=== PATIENT | female | born 1960 | race Caucasian/White ===

== ENCOUNTER 2025-04-21 17:55 | Emergency (ER) | payer SELFPAY ==
[2025-04-21] MEDS ORDERED: ONDANSETRON 4 MG/2 ML VIAL ONE (18:38)
[2025-04-21] MEDS ORDERED: NA CHLORIDE 0.9% 1,000 ML ONE (18:39)
[2025-04-21] MEDS ORDERED: MORPHINE 4 MG/ML SYR ONE (18:39)
[2025-04-21 19:19] LABS: Nucleated RBC Absolute Count 0.0 (0-0); White Blood Count 3.80 thou/uL (4.3-10.9)
[2025-04-21 19:24] LABS: Absolute Lymphocytes (CBC) 1.3 K/uL (0.7-4.9); Hematocrit 36.1 % (36.0-45.0); Hemoglobin 12.3 g/dL (12.0-15.0); MCH 33.7 pg (27.0-35.0); MCHC 34.1 g/dL (32.0-36.0); MCV 99.0 fL (80-100); MPV 8.0 fL (7.6-11.3); Nucleated Red Blood Cells % 0.3 % (0-0); RBC Red Blood Cell Count 3.65 M/uL (3.86-4.86)
[2025-04-21 19:28] LABS: Sqamous Epithelial <5 /HPF (None Seen); Urine Culture Reflex Order NOT NEEDED; Urine Microscopic Reflex YN ORDER UMIC
[2025-04-21] MEDS ORDERED: KETOROLAC 30 MG/ML INJ ONE (20:06)
[2025-04-21 21:05] LABS: ALT/SGPT 32.0 U/L (13-56); AST/SGOT 26.0 U/L (15-37); Albumin 4.0 g/dL (3.4-5.0); Albumin/Globulin Ratio 1.2 (1.1-1.8); Alkaline Phosphatase 104.0 U/L (45-117); Anion Gap 9.1 mEq/L (5.0-15.0); BUN Blood Urea Nitrogen 15.0 mg/dL (7-18); Globulin 3.3 g/dL (2.3-3.5); Glucose Level 89.0 mg/dL (74-106); Potassium 4.1 mEq/L (3.5-5.1)
--- NOTE | 2025-04-21 21:43 | RAD REPORT ---
EXAMINATION: Abdomen Pelvis W Contrast CLINICAL INDICATION: Female, 64 years old.ABD PAIN TECHNIQUE: CT abdomen and pelvis was performed, after the administration of IV contrast, [facility]. Axial, sagittal and coronal reconstructions were obtained. One or more of the following dose reduction techniques were used: Automated exposure control, adjustment of the mA and/o r kV according to patient size, and/or iterative reconstruction. Unless otherwise specified, incidental findings do not require dedicated imaging follow-up. [id number]. COMPARISON: No prior exams FINDINGS: LOWER CHEST: No acute process identified.No significant pericardial effusion. Mild coronary artery ca lcifications. UPPER GI: No significant abnormality. LIVER: No significant focal abnormality. GALLBLADDER/BILE DUCTS: No biliary ductal dilatation.? PANCREAS: No mass, ductal dilation, or onesimo-pancreatic fluid. SPLEEN: Unremarkable. ADRENALS: No adrenal masses. KIDNEYS AND URETERS: No hydronephrosis.Low density and/or too small to characterize renal lesions whi ch are statistically benign.No renal calculi.No ureteral calculi. ABDOMINAL AORTA AND OTHER VESSELS: Moderate atherosclerotic changes without aortic aneurysm. PERITONEUM: No abnormal free fluid. No free air. LYMPH NODES: No pathologic lymphadenopathy. ABDOMINAL WALL: Unremarkable SMALL BOWEL/COLON: Small bowel has normal course and caliber. No colonic wall thickening or pericolon ic inflammatory changes.Nonvisualized appendix but no secondary signs of acute appendicitis. Mild diverticulosis without diverticulitis. Large colonic stool burden. URINARY BLADDER: Underdistended but grossly unremarkable. REPRODUCTIVE ORGANS: No pathologic process. MUSCULOSKELETAL: Bilateral hip arthroplasties. No acute fracture. ADDITIONAL FINDINGS: None. IMPRESSION: No acute findings within the abdomen or pelvis. Incidental findings as noted above.
--- NOTE | 2025-04-21 22:02 | EDPHYS ---
Physician Documentation [facility] Name: Aide Madsen Age: 64 yrs Sex: Female : 1960 Arrival Date: 04/21/2025 Time: 17:55 Bed 6 Private MD: ED Physician Melisa Mooney HPI: 04/21 18:44 This 64 yrs old Female presents to ER via Ambulatory with complaints of Flank dr5 Pain - RIGHT SIDE. 18:44 The patient complains of pain in the right flank. The pain radiates to the right mid dr5 back. Onset: The symptoms/episode began/occurred 6 month(s) ago. Patient is a 64-year-old female with history of hypertension, fibromyalgia, migraines coming in with right midline flank pain that been going on since yesterday. Patient reports that she has had multiple surgeries on the right side of her body as well as a left hip replacement. Patient reports that she has had intermittent pain and numbness to her right side. Patient denies dizziness, headache, visual disturbances, nausea, vomiting, constipation, diarrhea, or fever. Patient reports that most of her symptoms that she is having are chronic but her right side is getting worse.. Historical: - Allergies: 18:14 Codeine; jb4 - Home Meds: 18:14 estradiol [Active]; progesterone micronized 200 mg oral capsule [Active]; Motrin Oral jb4 800 mg three times a day [Active]; sumatriptan [Active]; - PMHx: 18:14 HTN; Fibromyalgia; Migraine; jb4 - Immunization history:: Adult Immunizations up to date. - Infectious Disease History:: Denies. - Social history:: Smoking status: Patient denies any tobacco usage or history of. ROS: 18:44 Constitutional: as per hpi dr5 Exam: 18:44 Constitutional: This is a well developed, well nourished patient who is awake, alert, dr5 and in no acute distress. Head/Face: Normocephalic, atraumatic. Eyes: Pupils equal round and reactive to light, extra-ocular motions intact. Lids and lashes normal. Conjunctiva and sclera are non-icteric and not injected. Cornea within normal limits. Periorbital areas with no swelling, redness, or edema. Neuro: Awake and alert, GCS 15, oriented to person, place, time, and situation. Cranial nerves II-XII grossly intact. Motor strength 5/5 in all extremities. Sensory grossly intact. Cerebellar exam normal. Normal gait. 18:44 Chest/axilla: Normal chest wall appearance and motion. Nontender with no deformity. No lesions are appreciated. Cardiovascular: Regular rate and rhythm with a normal S1 and S2. Normal PMI, no JVD. No pulse deficits. Respiratory: Lungs have equal breath sounds bilaterally, clear to auscultation. No rales, rhonchi or wheezes noted. No increased work of breathing, no retractions or nasal flaring. Abdomen/GI: Soft, non-tender, non-distended. Tenderness to palpation of midline right side. No rash / vesicular lesions noted. Skin: Warm, dry with normal turgor. Normal color with no rashes, no lesions, and no evidence of cellulitis. MS/ Extremity: Pulses equal, no cyanosis. Neurovascular intact. Full, normal range of motion. Vital Signs: 18:10 BP 142 / 76; Pulse 100; Resp 16; Temp 98.5(O); Pulse Ox 100% on R/A; Weight 68.95 kg; jb4 Height 5 ft. 3 in. ; Pain 6/10; 18:30 BP 144 / 79; Pulse 88; Resp 16; Temp 98(O); Pulse Ox 99% on R/A; Weight 68.95 kg; cf3 Height 5 ft. 3 in. ; 19:00 BP 147 / 86; Pulse 89; Resp 16; Pulse Ox 97% ; me1 20:00 BP 142 / 86; Pulse 79; Resp 17; Pulse Ox 99% ; me1 20:27 Pain 5/10; kj2 21:00 BP 147 / 78; Pulse 76; Resp 18; Pulse Ox 97% ; me1 18:30 Body Mass Index 26.93 (68.95 kg, 160.02 cm) cf3 18:10 Pain Scale: Adult jb4 20:27 Pain Scale: Adult kj2 NIH Stroke Scale Scores: 18:44 NIHSS Score: 0 dr5 MDM: 18:03 Medical Screening Exam initiated dr5 20:21 Transition of care: After a detail discussion of the patient's case, care is dr5 transferred to Selena CRANDALL. 22:02 Differential diagnosis: nephrolithiasis, pyelonephritis, UTI. Data reviewed: vital kb signs, nurses notes. I considered the following discharge prescriptions or medication management in the emergency department I discussed and recommended Over The Counter medications, Antibiotics: At this time antibiotics are not recommended. Historians other than the Patient: Spouse/Significant Other: spouse. Counseling: I had a detailed discussion with the patient and/or guardian regarding the historical points, exam findings, and any diagnostic results supporting the discharge/admit diagnosis, lab results, radiology results, the need for outpatient follow up, a family practitioner, to return to the emergency department if symptoms worsen or persist or if there are any questions or concerns that arise at home. 04/21 18:29 Order name: CBC with Diff; Complete Time: 19:34 dr5 04/21 18:29 Order name: CMP; Complete Time: 21:12 dr5 04/21 18:29 Order name: UA Rfx Ben Cult if indicated; Complete Time: 19:33 dr5 04/21 21:33 Order name: CREATININE WHOLE BLOOD; Complete Time: 21:35 EDMS 04/21 18:29 Order name: CT Abd/Pelvis - IV Contrast Only; Complete Time: 21:51 dr5 Administered Medications: 19:00 Drug: NS 0.9% IV 1000 ml IV at 1000 ml once; to be given as a bolus over 60 minutes me1 Route: IV; Rate: 1000 ml; Site: right antecubital; 22:10 Follow up: IV Status: Completed infusion cp4 19:00 Drug: morphine IVP or IV 4 mg IVP once over 4 mins Route: IVP; Infused Over: 4 mins; me1 Site: right antecubital; 20:04 Follow up: Response: No adverse reaction; Nausea is decreased kj2 19:00 Drug: Ondansetron IVP 4 mg IVP once; over 2 minutes Route: IVP; Site: right antecubital;me1 20:04 Follow up: Response: No adverse reaction; Pain is decreased kj2 20:13 Drug: Ketorolac IVP 15 mg IVP once Route: IVP; Site: right antecubital; me1 22:10 Follow up: Response: No adverse reaction cp4 Disposition Summary: 04/21/25 22:01 Discharge Ordered Notes: Location: Home kb Condition: Stable kb Diagnosis - Right flank pain kb Followup: kb - With: Emergency Department - When: As needed - Reason: Worsening of condition Followup: kb - With: Private Physician - When: 2 - 3 days - Reason: Recheck today's complaints, Continuance of care, Re-evaluation by your physician Discharge Instructions: - Discharge Summary Sheet kb - Flank Pain, Adult, [id number] kb Forms: - Medication Reconciliation Form kb - Antibiotic Education kb - Prescription Opioid Use kb - Patient Portal Instructions kb - Leadership Thank You Letter andrew NIH Stroke Scale - NIH Stroke Score Date: 04/21/2025 Time: 18:44 Total Score = 0 10. Dysarthria (speech clarity - read or repeat words) - 0(Normal) 11. Extinction and Inattention (visual/tactile/auditory/spatial/personal) - 0(No abnormality) 1a. Level of Consciousness (LOC) - 0(Alert) 1b. Level of Consciousness (LOC) (Month \T\ Age) - 0(Both) 1c. LOC Commands (Open \T\ Closes Eyes/Pigment Pusher) - 0(Both) 2. Best Gaze (Lateral Gaze Paresis) - 0(Normal) 3. Visual Field Loss - 0(No visual loss) 4. Facial Palsy - 0(Normal) 5a. Left Arm: Motor (10-second hold) - 0(No drift) 5b. Right Arm: Motor (10-second hold) - 0(No drift) 6a. Left Leg: Motor (5-second hold - always test supine) - 0(No drift) 6b. Right Leg: Motor (5-second hold - always test supine) - 0(No drift) 7. Limb Ataxia (finger/nose \T\ heel/mojica - test with eyes open) - 0(Absent) 8. Sensory Loss (pinprick arms/legs/face) - 0(Normal) 9. Best Language: Aphasia (description/naming/reading) - 0(No aphasia) Initials: dr5 Signatures: Dispatcher [employer] EDMD Selena Patricio, RAZ HEATER MECHANIC-Eric Mcgregor RN RN jb4 Yuli Silva RN RN me1 Contreras Jones FNPDamonC HEATER MECHANIC-5 [place] Love cp4 Shelly Torre RN kj2 Corrections: (The following items were deleted from the chart) 18:17 18:14 Allergies: No Known Allergies; gael jbAna 18:29 18:29 CBC+H.LAB.BRZ ordered. EDMD EDMD 18:29 18:29 COMPREHENSIVE METABOLIC PANEL+C.LAB.BRZ ordered. EDMS EDMS 18: UA Rfx Ben Cult if indicated+U.LAB.BRZ ordered. EDMS EDMS 18: Abdomen Pelvis W Con+CT.RAD.BRZ ordered. EDMS EDMS
--- NOTE | 2025-04-21 22:02 | ER ---
Nurse's Notes [facility] Name: Aide Madsen Age: 64 yrs Sex: Female : 1960 Arrival Date: 04/21/2025 Time: 17:55 Bed 6 Private MD: Diagnosis: Right flank pain Presentation: 04/21 18:10 Chief complaint: Patient states: I am having pain going down my right side. that jb4 radiates down my right arm and now down my leg. that started last night and now I am noticing it going up my face. It started 1pm yesterday. It feels like a tingling aching sensation. The weakness and tingling in the right side of my face has been getting worse. Coronavirus screen: At this time, the client does not indicate any symptoms associated with coronavirus-19. Ebola Screen: No symptoms or risks identified at this time. Initial Sepsis Screen: Does the patient meet any 2 criteria? HR > 90 bpm. Yes Does the patient have a suspected source of infection? No. Patient's initial sepsis screen is negative. Risk Assessment: Do you want to hurt yourself or someone else? Patient reports no desire to harm self or others. Onset of symptoms was April 20, 2025. Transition of care: patient was not received from another setting of care. 18:10 Method Of Arrival: Ambulatory jb4 18:10 Acuity: JEFFERY 3 jb4 Historical: - Allergies: 18:14 Codeine; jb4 - Home Meds: 18:14 estradiol [Active]; progesterone micronized 200 mg oral capsule [Active]; Motrin Oral jb4 800 mg three times a day [Active]; sumatriptan [Active]; - PMHx: 18:14 HTN; Fibromyalgia; Migraine; jb4 - Immunization history:: Adult Immunizations up to date. - Infectious Disease History:: Denies. - Social history:: Smoking status: Patient denies any tobacco usage or history of. Screenin:30 [facility] ED Fall Risk Assessment (Adult) History of falling in the last 3 months, cf3 including since admission No falls in past 3 months (0 pts) Confusion or Disorientation No (0 pts) Intoxicated or Sedated No (0 pts) Impaired Gait No (0 pts) Mobility Assist Device Used No (0 pt) Altered Elimination No (0 pt) Score/Fall Risk Level 0 - 2 = Low Risk Oriented to surroundings, Maintained a safe environment. Abuse screen: Denies threats or abuse. Denies injuries from another. Nutritional screening: No deficits noted. Tuberculosis screening: No symptoms or risk factors identified. Assessment: 18:30 General: Appears in no apparent distress. Behavior is calm, cooperative. Pain: cf3 Complains of pain in top of head Pain currently is 9 out of 10 on a pain scale. Neuro: Oliveira Agitation-Sedation Scale (RASS): 0 - Alert and Calm Level of Consciousness is awake, alert, obeys commands, Oriented to person, place, time, situation, Timber Surveyor are equal bilaterally. Cardiovascular: Denies chest pain, diaphoresis, fatigue, lightheadedness. Vital Signs: 18:10 BP 142 / 76; Pulse 100; Resp 16; Temp 98.5(O); Pulse Ox 100% on R/A; Weight 68.95 kg; jb4 Height 5 ft. 3 in. ; Pain 6/10; 18:30 BP 144 / 79; Pulse 88; Resp 16; Temp 98(O); Pulse Ox 99% on R/A; Weight 68.95 kg; cf3 Height 5 ft. 3 in. ; 19:00 BP 147 / 86; Pulse 89; Resp 16; Pulse Ox 97% ; me1 20:00 BP 142 / 86; Pulse 79; Resp 17; Pulse Ox 99% ; me1 20:27 Pain 5/10; kj2 21:00 BP 147 / 78; Pulse 76; Resp 18; Pulse Ox 97% ; me1 18:30 Body Mass Index 26.93 (68.95 kg, 160.02 cm) cf3 18:10 Pain Scale: Adult jb4 20:27 Pain Scale: Adult kj2 NIH Stroke Scale Scores: 18:44 NIHSS Score: 0 dr5 ED Course: 18:03 Patient arrived in ED. gl 18:03 Contreras [facility]-C [facility]5 18:03 Melisa Mooney MD is Attending Physician. dr5 18:14 Triage completed. jb4 18:14 Arm band placed on right wrist. jb4 18:30 Patient has correct armband on for positive identification. Bed in low position. Call cf3 light in reach. Side rails up X 1. Pulse ox on. NIBP on. Door closed. Noise minimized. 18:30 No provider procedures requiring assistance completed. cf3 18:34 Cuong Tsai, RN is Primary Nurse. cf3 19:00 UA Rfx Ben Cult if indicated Sent. me1 19:00 CMP Sent. me1 19:00 CBC with Diff Sent. me1 19:00 Initial lab(s) drawn, by me, sent to lab. Urine collected: clean catch specimen, me1 cloudy. Inserted saline lock: 22 gauge in right antecubital area, using aseptic technique. 20:01 PHCP role handed off by Contreras Jones FNP-C kb 20:01 Selena Patricio FNP-C is PHCP. kb 20:39 Radiology exam delayed due to lab results not completed at this time. (BUN/Creatinine). mw3 21:22 CT Abd/Pelvis - IV Contrast Only In Process Unspecified. EDMS 22:20 Provided Education on: flank pain. cp4 22:20 intact, bleeding controlled, No redness/swelling at site. Pressure dressing applied. cp4 Administered Medications: 19:00 Drug: NS 0.9% IV 1000 ml IV at 1000 ml once; to be given as a bolus over 60 minutes me1 Route: IV; Rate: 1000 ml; Site: right antecubital; 22:10 Follow up: IV Status: Completed infusion cp4 19:00 Drug: morphine IVP or IV 4 mg IVP once over 4 mins Route: IVP; Infused Over: 4 mins; me1 Site: right antecubital; 20:04 Follow up: Response: No adverse reaction; Nausea is decreased kj2 19:00 Drug: Ondansetron IVP 4 mg IVP once; over 2 minutes Route: IVP; Site: right antecubital;me1 20:04 Follow up: Response: No adverse reaction; Pain is decreased kj2 20:13 Drug: Ketorolac IVP 15 mg IVP once Route: IVP; Site: right antecubital; me1 22:10 Follow up: Response: No adverse reaction cp4 Medication: 18:30 VIS not applicable for this client. cf3 Outcome: 22:01 Discharge ordered by . kb 22:20 Discharged to home ambulatory, cp4 22:20 Condition: stable 22:20 Discharge instructions given to patient, family, Instructed on discharge instructions, follow up and referral plans. Demonstrated understanding of instructions, follow-up care, 22:21 Patient left the ED. cp4 NIH Stroke Scale - NIH Stroke Score Date: 04/21/2025 Time: 18:44 Total Score = 0 10. Dysarthria (speech clarity - read or repeat words) - 0(Normal) 11. Extinction and Inattention (visual/tactile/auditory/spatial/personal) - 0(No abnormality) 1a. Level of Consciousness (LOC) - 0(Alert) 1b. Level of Consciousness (LOC) (Month \T\ Age) - 0(Both) 1c. LOC Commands (Open \T\ Closes Eyes/Tapping Machine Operator Automatic) - 0(Both) 2. Best Gaze (Lateral Gaze Paresis) - 0(Normal) 3. Visual Field Loss - 0(No visual loss) 4. Facial Palsy - 0(Normal) 5a. Left Arm: Motor (10-second hold) - 0(No drift) 5b. Right Arm: Motor (10-second hold) - 0(No drift) 6a. Left Leg: Motor (5-second hold - always test supine) - 0(No drift) 6b. Right Leg: Motor (5-second hold - always test supine) - 0(No drift) 7. Limb Ataxia (finger/nose \T\ heel/mojica - test with eyes open) - 0(Absent) 8. Sensory Loss (pinprick arms/legs/face) - 0(Normal) 9. Best Language: Aphasia (description/naming/reading) - 0(No aphasia) Initials: dr5 Signatures: Dispatcher [employer] EDSelena Rai, NEIGHBORHOOD COORDINATOR-C NEIGHBORHOOD COORDINATOR-Ckb Eric Zacarias RN RN jb4 Yuli Feliciano mw3 Yuli Silva, GENIA RN me1 [place] Love cp4 Shelly Torre RN RN kj2 Contreras Jones, NEIGHBORHOOD COORDINATOR-C NEIGHBORHOOD COORDINATOR-Cdr5 Serena Junior, Reg Reg gl Cuong Tsai RN RN cf3 Corrections: (The following items were deleted from the chart) 18:17 18:14 Allergies: No Known Allergies; gael jb4
[2025-04-21 22:40] VITALS: TEMP 98
[2025-04-21 23:02] VITALS: BP 142/86; O2SAT 99
== END 2025-04-21 22:21 | disposition home or self-care (01) ==
LOC: ER 17:55
DX: R10.31 Right lower quadrant pain (principal)
CPT/HCPCS: 36415; 74177; 80053; 81001; 82565; 85025; 96361; 96374; 96375; 99284; J2405; J7030; Q9967